=== PATIENT | female | born 1955 | race Caucasian/White ===

== ENCOUNTER 2019-05-06 11:52 | Emergency (ER) | payer MEDICAID ==
[~2019-05-06] VITALS: Ht 172.7 cm; Wt 68.2 kg
[~2019-05-06 11:52] MED LIST: ONDA4TAB6 PO; TRAM50TA2 PO
[2019-05-06 12:11] VITALS: BP 133/81
[2019-05-06] MEDS ORDERED: SULF1TAB49 PO (12:59)
[2019-05-06] MEDS ORDERED: CEPH500C5 PO (12:59)
[2019-05-07] MEDS ORDERED: NO HOME MEDS (15:06)
[2019-05-07] MEDS ORDERED: CEPH-572 PO (15:15)
[2019-05-07] MEDS ORDERED: SULF1TAB49 PO (15:15)
== END 2019-05-06 13:11 | disposition home or self-care (01) ==
LOC: ER 11:54
DX: L03.317 Cellulitis of buttock (principal); L02.31 Cutaneous abscess of buttock; F11.10 Opioid abuse, uncomplicated; G89.29 Other chronic pain; F41.9 Anxiety disorder, unspecified; F15.90 Other stimulant use, unspecified, uncomplicated; F19.90 Other psychoactive substance use, unspecified, uncomplicated; Z79.2 Long term (current) use of antibiotics; Z79.899 Other long term (current) drug therapy
CPT/HCPCS: 99283

== ENCOUNTER 2019-05-07 11:43 | Inpatient (IN) | payer MEDICAID ==
[~2019-05-07] VITALS: Ht 172.7 cm; Wt 68.2 kg
[~2019-05-07 11:43] MED LIST changes: +CEPH500C5 PO; +SULF1TAB49 PO
[2019-05-07] MEDS ORDERED: piperacillin/tazo 3.375gm/50ml 50 ML IV ONE (12:30)
[2019-05-07 12:55] LABS: BASOPHILS % (AUTO) 0.2 % (0-1); EOSINOPHILS # (AUTO) 0.1 X10'3 (0-0.9); EOSINOPHILS % (AUTO) 0.5 % (0-6); HEMATOCRIT 41.9 % (35.0-45.0); HEMOGLOBIN 14.1 g/dl (12.0-16.0); LYMPHOCYTES # (AUTO) 1.2 X10'3 (1.1-4.8); LYMPHOCYTES % (AUTO) 8.7 % (21-51); MEAN CORPUSCULAR HGB CONC 33.6 g/dL (33.0-36.5); MEAN CORPUSCULAR VOLUME 83.3 FL (78-98); MEAN PLATELET VOLUME 7.9 FL (7.4-10.4); MONOCYTES # (AUTO) 0.7 X10'3 (0-0.9); MONOCYTES % (AUTO) 4.9 % (2-12); NEUTROPHILS # (AUTO) 11.6 X10'3 (1.8-7.7); NEUTROPHILS % (AUTO) 85.7 % (42-75); PLATELET COUNT 216 X10'3 (140-440); RED BLOOD COUNT 5.04 X10'6 (4.20-5.60); RED CELL DISTRIBUTION WIDTH 13.1 % (11.5-14.5); WHITE BLOOD COUNT 13.5 X10'3 (4.5-11.0)
[2019-05-07] MEDS ORDERED: ondansetron/PF 4mg/2ml inj IV ONE (12:55)
--- NOTE | 2019-05-07 12:57 | NUR ---
Report given to SOILA Lopez at this time, patient off unit via wheelchair, no signs of distress noted.
[2019-05-07] MEDS: morphine 4 MG/ML inj SYRINge IV PRN ×2 (13:03→14:36)
[2019-05-07 13:10] LABS: ALANINE AMINOTRANSFERASE 16 U/L (12-78); ALBUMIN 3.6 G/DL (3.4-5.0); ALBUMIN/GLOBULIN RATIO 0.8 (1.1-1.5); ALKALINE PHOSPHATASE 114 IU/L (46-116); ANION GAP 9 (8-16); ASPARTATE AMINO TRANSFERASE 14 U/L (10-37); BILIRUBIN,TOTAL 1.4 MG/DL (0.1-1.0); BLOOD UREA NITROGEN 7 MG/DL (7-18); BUN/CREATININE RATIO 8.1 (6.6-38.0); CHLORIDE 101 MMOL/L (99-107); CREATININE 0.86 MG/DL (0.40-0.90); GLUCOSE 133 MG/DL (70-104); POTASSIUM 3.7 MMOL/L (3.5-5.1); SODIUM 140 MMOL/L (135-145); TOTAL CARBON DIOXIDE 30.1 MMOL/L (24-32); TOTAL PROTEIN 7.9 G/DL (6.4-8.2); eGFR 67 ML/MIN
[2019-05-07] MEDS ORDERED: LIDOcaine 1% w/epiNEPHrine 1:200,000 30ml vial IM ONE (13:20)
[2019-05-07] MEDS ORDERED: normal saline 1000ml 1,000 ML IV SCH (14:38)
[2019-05-07] MEDS ORDERED: bisacodyl 10mg suppository rectal RC PRN (14:40)
[2019-05-07] MEDS ORDERED: potassium CL 10mEq/100ml bag 100 ML IV PRN ×2 (14:40)
[2019-05-07] MEDS ORDERED: HYDROcodone/acetaminophen 5mg/325mg tablet PO PRN (14:40)
[2019-05-07] MEDS ORDERED: magnesium 2GM in 50ml NS 50 ML IV PRN (14:40)
[2019-05-07] MEDS ORDERED: ondansetron/PF 4mg/2ml inj IV PRN (14:40)
[2019-05-07] MEDS ORDERED: acetaminophen 650mg rectal suppository RC PRN (14:40)
[2019-05-07] MEDS ORDERED: potassium Cl 20 mEq SR tablet PO PRN ×2 (14:40)
[2019-05-07] MEDS ORDERED: magnesium Cl slow-release 64mg tablet PO PRN (14:40)
[2019-05-07] MEDS ORDERED: magnesium 4gm in 100ml NS 100 ML IV PRN (14:40)
[2019-05-07] MEDS ORDERED: acetaminophen 325mg tablet PO PRN ×2 (14:40)
[2019-05-07] MEDS ORDERED: mag hydrox/Alum hydrox/simeth 30ml oral suspension PO PRN (14:40)
[2019-05-07] MEDS ORDERED: magnesium hydroxide 30ml (MOM) UD suspension PO PRN (14:40)
[2019-05-07] MEDS ORDERED: K and/or MAG REPLACEMENT MC SCH (14:40)
[2019-05-07] MEDS ORDERED: metoclopramide 5 mg/ml inj IV PRN (14:40)
[2019-05-07] MEDS ORDERED: diphenhydrAMINE 25mg capsule PO PRN (14:40)
[2019-05-07] MEDS ORDERED: morphine 2 MG/ML inj. syringe IV PRN ×2 (14:40)
[2019-05-07] MEDS ORDERED: HYDROcodone/acetaminophen 10/325mg tab PO PRN (14:40)
[2019-05-07] MEDS ORDERED: diphenhydrAMINE 50 mg/ml inj IV PRN (14:40)
--- NOTE | 2019-05-07 14:44 | NUR ---
while administering morphine iv diluted in saline slowly pt began to state it was burning and itching, stopped administration applyed cool cloth (refused ice) and notifyed
--- NOTE | 2019-05-07 14:45 | NUR ---
cultured left hip wound and covered with abd/tape
[2019-05-07] MEDS ORDERED: HYDROcodone/acetaminophen 10/325mg tab PO ONE (14:50)
[2019-05-07] MEDS ORDERED: diphenhydrAMINE 50 mg/ml inj IV ONE (14:50)
[2019-05-07] MEDS ORDERED: NO HOME MEDS (15:06)
[2019-05-07] MEDS ORDERED: CEPH-572 PO (15:15)
[2019-05-07] MEDS ORDERED: SULF1TAB49 PO (15:15)
[2019-05-07 15:19] LABS: HEMOGLOBIN A1C 5.5 % (4.5-6.2)
--- NOTE | 2019-05-07 15:19 | NUR ---
pt right arm clear, refused benadryl
[2019-05-07 15:29] LABS: ETHANOL < 0.010 GM/DL (0.0-0.010)
[2019-05-07] MEDS ORDERED: vancomycin/NS 1 GM ADD-VANTAGE 250 ML IV SCH (16:00)
[2019-05-07] MEDS ORDERED: piperacillin/tazo 3.375gm/50ml 50 ML IV SCH (16:00)
[2019-05-07 16:04] VITALS: BP 132/86
--- NOTE | 2019-05-07 16:29 | NUR ---
I NOTIFIED PT THAT WE HAD A ROOM AVAILABLE UPSTAIRS AND I WOULD BE TAKING HER UP TO HER ROOM. AT THIS TIME PT REQUEST TO LEAVE AMA, PT SIGNED AMA FORM. I PAGED DR MORENO, AWAITING RESPONSE. I DC'D THE PT'S PIV IN HER RT HAND, CANNULA INTACT. PT LEFT THE ED. PT SAID SHE WAS A HEROIN ADDICT AND WAS GOING TO GO THROUGH WITHDRAWLS AND REFUSED TO STAY.
[2019-05-07] MEDS ORDERED: heparin, porcine 5000 units/ml vial SQ SCH (20:00)
[2019-05-09] MEDS ORDERED: VANCOMYCIN LEVEL IV ONE (03:30)
== END 2019-05-07 18:33 | disposition left against medical advice (07) | DRG 383 ==
LOC: ER 11:43 → ORTHO 4S 16:43
PROVIDERS: ADMIT Family Medicine; ATTEND Family Medicine
PROC: 0H98XZZ Drainage of Buttock Skin, External Approach (ICD-10-PCS; principal; 2019-05-07)
DX: L02.31 Cutaneous abscess of buttock (principal); F11.20 Opioid dependence, uncomplicated; F17.210 Nicotine dependence, cigarettes, uncomplicated; L03.317 Cellulitis of buttock; Z53.21 Procedure and treatment not carried out due to patient leaving prior to being seen by health care provider; Z60.2 Problems related to living alone; B19.20 Unspecified viral hepatitis C without hepatic coma; F41.9 Anxiety disorder, unspecified; G89.29 Other chronic pain; Z98.51 Tubal ligation status; Z90.49 Acquired absence of other specified parts of digestive tract; Z71.51 Drug abuse counseling and surveillance of drug abuser
CPT/HCPCS: 10060; 36415; 80053; 80320; 83036; 84145; 85025; 87040; 87070; 87075; 87077; 87186; 96361; 96365; 96375; 96376; 99285; G0378; J2270; J2405; J2543